=== PATIENT | female | born 1995 | race Caucasian/White ===

== ENCOUNTER 2017-09-27 21:02 | Emergency (ER) | payer OTHER, SELFPAY ==
[2017-09-27] MEDS ORDERED: Amoxicillin/Potassium Clav 875 MG TAB ONE (21:11)
[2017-09-27] MEDS ORDERED: Ketorolac Tromethamine 60 MG/2 ML VIAL ONE (21:14)
--- NOTE | 2017-09-27 22:02 | RAD ---
LEFT HAND THREE VIEWS: 09/27/2017 FINDINGS: A marker at the site of injury shows no opaque foreign bodies there. Small flecks seen elsewhere are judged to be film artifacts. No fractures are present. IMPRESSION: No acute findings. POS: HOME
== END 2017-09-27 21:29 | disposition home or self-care (01) ==
LOC: BURERS 21:02
DX: S61.552A Open bite of left wrist, initial encounter (principal); S61.152A Open bite of left thumb with damage to nail, initial encounter; S61.112A Laceration without foreign body of left thumb with damage to nail, initial encounter; S61.532A Puncture wound without foreign body of left wrist, initial encounter; W54.0XXA Bitten by dog, initial encounter
CPT/HCPCS: 96372; J1885